=== PATIENT | male | born 1950 | race Caucasian/White ===

== ENCOUNTER 2023-05-04 10:18 | Outpatient (CLI) | payer MEDICARE, MEDICAID, SELFPAY ==
--- NOTE | 2023-05-04 10:30 | CT_ITS ---
WS: [id number] LDCT LUNG CANCER SCREENING TECHNIQUE: Noncontrast CT of the chest with coronal and sagittal reformatted images. CLINICAL INFORMATION: Lung CA screening COMPARISON: None. DLP: 72.02 mGy.cm DIvol: Mean CTDIvol: 1.70 (mGy) All CT scans at [facility] use at least one of these dose optimization techniques: automat ed exposure control; mA and/or kV adjustment per patient size (includes targeted exams where dose is matched to clinical indication); or iterative reconstruction. FINDINGS: Slight subsegmental atelectasis at the lung bases. Tiny left upper lobe nodule or partially calcified granuloma measuring 3.5 mm left upper lobe. Additional tiny noncalcified nodule left upper lobe. Aortic calcification. Normal caliber thoracic aorta. 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 This can be followed up with CTA. Coronary calcification. Normal caliber descending thoracic aorta. Partially visualized large lobulated left renal cysts the largest measuring 8.8 x 8.7 cm. Adrenal gla nds are normal. Small esophageal hernia. No mediastinal or hilar lymphadenopathy. No axillary lymphad enopathy. Hypertrophic changes thoracic spine with ankylosis. IMPRESSION: Large lobulated left renal cysts. This to be further evaluated with ultrasound or CT abdo men pelvis. 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 This can be further evalua sharla with CTA. CT/CT lung screening [id number] LUNG-RADS: 2S-Benign Appearance or Behavior with Significant Findings FOLLOW UP: 12 Month: Continue annual screening with LDCT
== END 2023-05-04 10:19 | disposition home or self-care (01) ==
PROVIDERS: PCP Family Medicine; Visit Provider Family Medicine
DX: F17.219 Nicotine dependence, cigarettes, with unspecified nicotine-induced disorders (principal); Z72.0 Tobacco use; Z12.2 Encounter for screening for malignant neoplasm of respiratory organs
CPT/HCPCS: 71271

== ENCOUNTER 2023-05-26 14:21 | Outpatient (CLI) | payer MEDICARE, MEDICAID, SELFPAY ==
--- NOTE | 2023-05-26 14:30 | CT_ITS ---
WS: [id number] CT ANGIOGRAPHY CHEST, ABDOMEN AND PELVIS HISTORY: AORTIC ANEURYSM, LOBULATED RENAL CYSTS TECHNIQUE: CT angiogram is performed during IV injection. Reformation images reviewed. All CT scans a [employer] use at least one of these dose optimization techniques: automated exposure contro l; mA and/or kV adjustment per patient size (includes targeted exams where dose is matched to clinica l indication); or iterative reconstruction. CONTRAST: Omnipaque 350; 100 mL IV. DLP: 1099.36 mGy.cm COMPARISON: 05/04/2023. Thoracic aorta: Very good opacification of the thoracic aorta. There is calcified plaque through the aortic arch. Ascending aorta is normal caliber. Focal plaque through the aortic arch. Bovine arch. Mo derate stenosis origin of the LEFT subclavian artery. Normal caliber of the descending aorta. No aneu rysm. Normal sized pulmonary artery. Significant motion artifact. Patient was unable to hold his garret th for this examination. No enlarged nodules or masses identified. No pneumonia. No mediastinal or hi lar adenopathy. Normal size heart. Small hiatal hernia. Abdominal aorta: Increasing calcified plaque through the abdominal aorta. No aneurysm or high-grade s tenosis. There is both a mixture of calcified plaque and intimal thickening. No significant stenosis involving the SMA or celiac axis. Both kidneys are enhancing normally. Bifurcation is intact. Slightl y greater plaque on the LEFT with a small diameter. 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 Normal appearance of the liver and spleen. Cholelithiasis without acute cholecystitis. Negative pancr eas. Bilateral renal cysts. Large LEFT renal cysts. There are 2 large renal cysts with the largest me asuring 11 x 9 cm. No adenopathy or ascites. No GI tract obstruction. Normal appendix. Mild sigmoid d iverticulosis. No acute diverticulitis. Urinary bladder is well distended. Prostate gland is mildly enlarged encroaching into the bladder. L4 anterolisthesis by 5 mm. IMPRESSION: 1. No thoracic aortic aneurysm. Moderate amount of plaque through the aortic arch. 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 2. Evaluation of the lungs is limited due to breathing motion artifact. 3. Moderate atherosclerotic plaque abdominal aorta with extension into the iliac arteries. Occluded L EFT internal iliac artery. 4. Bilateral renal cysts. Large LEFT renal cysts. There are 2 large LEFT renal cysts with the largest measuring 11 x 9 cm. 5. Prostate gland enlargement.
[2023-05-26 14:59] LABS: Blood Urea Nitrogen 12 mg/dL (8-23)
[2023-05-26] MEDS: iohexol 350 mg/mL 500 mL Btl (per mL) IV (15:21)
== END 2023-05-26 14:22 | disposition home or self-care (01) ==
LOC: RAD 14:25
PROVIDERS: Radiology Neuroradiology; PCP Family Medicine; Visit Provider Family Medicine
DX: I71.22 Aneurysm of the aortic arch, without rupture (principal); Q61.9 Cystic kidney disease, unspecified; R39.9 Unspecified symptoms and signs involving the genitourinary system; N40.0 Benign prostatic hyperplasia without lower urinary tract symptoms
CPT/HCPCS: 71275; 74174; 82565; 84520; Q9967

== ENCOUNTER 2023-07-05 08:54 | Outpatient (CLI) | payer MEDICARE, MEDICAID, SELFPAY ==
--- NOTE | 2023-07-05 09:00 | US_ITS ---
WS: [id number] RENAL ULTRASOUND HISTORY: Bilateral Renal Cysts COMPARISON: 05/26/2023 TECHNIQUE: 2-D and color Doppler imaging of the kidney submitted. Right kidney: 11.5 cm x 6.7 cm x 7.8 cm. Cortex: 1.6 cm Normal size kidney. There is a very tiny cortical cyst mid kidney with a maximum diameter of 1.1 cm. Left kidney: 11.8 cm x 3.8 cm x 6.3 cm. Cortex: 1.4 cm Normal size kidney. There are several cysts within the LEFT kidney. There are low-level echoes throug hout the cyst which is probably artifact. The largest cyst measures 11.0 x 8.1 x 8.5 cm. There are at least 3 cysts identified. The cysts are slightly displacing the renal pelvis. There is no hydronephr osis. Aorta: Normal. Urinary Bladder: Nondistended. IMPRESSION: 1. No hydronephrosis or solid mass. 2. Large LEFT renal cysts. 3 cysts are identified with the largest measuring 11.0 x 8.1 x 8.5 cm.
== END 2023-07-05 08:55 | disposition home or self-care (01) ==
PROVIDERS: PCP Family Medicine; Visit Provider Family Medicine
DX: N28.1 Cyst of kidney, acquired (principal)
CPT/HCPCS: 76770

== ENCOUNTER 2023-10-13 18:52 | Emergency (ER) | payer MEDICARE, MEDICAID, SELFPAY ==
[2023-10-13 19:06] VITALS: BP 142/80; PULSE 134; RESP 16; TEMP 36.7; O2SAT 95
--- NOTE | 2023-10-13 19:35 | W.ED.MALEGU ---
HPI - Male Genitourinary General: Chief complaint: Urogenital-Male Stated complaint: urgent care sent: purvi dinero Time Seen by Provider: 10/13/23 19:24 History of Present Illness: Patient presents to the ER from the urgent care with a caregiver at bedside. They are reporting foul-smelling urine and fever x 2 days as well along with urinary incontinence. Patient has a fever 101 this afternoon but was given 2 Tylenol and his temperature was 98.1 in the emergency room. Patient is complaining of mild suprapubic pain today per the caregiver and caregiver states that his mentation today is his baseline. Review of Systems General: Reports: 10 or more systems reviewed and unremarkable except in HPI and below Physical Exam HENMT: COMMON NORMALS: normocephalic, atraumatic, hearing grossly normal bilaterally, external ears normal, EAC's normal, Normal external nose present, moist oral mucous membranes and oropharynx normal HEAD & SCALP: normocephalic and atraumatic NOSE: Normal external nose present EXTERNAL EAR: Yes external ears normal EXTERNAL AUDITORY CANAL: EAC's normal Neck/C-Spine: COMMON NORMALS: no JVD Chest: COMMONS NORMALS: normal inspection of the chest and normal palpation of entire chest wall Resp: COMMON NORMALS: normal respiratory effort, No retractions, No use of accessory muscles and clear to auscultation bilaterally AUSCULTATION: clear to auscultation bilaterally Cardio: COMMON NORMALS: no JVD, regular rhythm, S1 normal heart sound present, S2 normal heart sound present, No gallops present (Cardio), No clicks present (Cardio) and No murmurs present (Cardio); negative for regular rate (Tachycardic) RATE: abnormal rate (Tachycardic) RHYTHM: regular rhythm HEART SOUNDS: S1 normal heart sound present and S2 normal heart sound present Course Vital Signs: Vital signs: Vital Signs Temperature 98.1 F 10/13/23 19:06 Pulse Rate 134 H 10/13/23 19:06 Respiratory Rate 16 10/13/23 19:06 Blood Pressure 142/80 10/13/23 19:06 Pulse Oximetry 95 10/13/23 19:06 MDM - Male Medical Decision Making Urinalysis was obtained which showed tyler hematuria and positive for nitrates leukocyte Estrace with too many to count red blood cells and white blood cells. Patient be given Cipro 500 mg here in ER and discharged home to continue on Cipro 500 mg twice daily for 7 days. Patient should follow-up with his PCP within the next 7 to 10 days for further evaluation and treatment. Differential Diagnosis Likely urinary tract infection; Unlikely priapism, urethritis, epididymitis, genital herpes simplex, prostatitis, acute retention of urine or inguinal hernia Medical Records I reviewed the patient's medical records. Lab Data I reviewed the patient's lab results. Laboratory Results Urine Color Red (Yellow) A 10/13/23 19:46 Urine Appearance Bloody (CLEAR) A 10/13/23 19:46 Urine pH 9 (5-7) H 10/13/23 19:46 Ur Specific [place] 1.010 (1.005-1.030) 10/13/23 19:46 Urine Protein 3+ (Negative) H 10/13/23 19:46 Urine Glucose (UA) Norm (Normal) 10/13/23 19:46 Urine Ketones 1+ (Negative) H 10/13/23 19:46 Urine Blood 3+ (Negative) H 10/13/23 19:46 Urine Nitrate Positive (Negative) H 10/13/23 19:46 Urine Bilirubin Neg (Negative) 10/13/23 19:46 Prot Sulfosalicylic Acd Positive (Negative) 10/13/23 19:46 Urine Urobilinogen 1 mg/dL (Negative) H 10/13/23 19:46 Ur Leukocyte Esterase 2+ (Negative) H 10/13/23 19:46 Urine RBC Too numerous to cnt /hpf (0-2) H 10/13/23 19:46 Urine WBC Too numerous to cnt /hpf (0-5) H 10/13/23 19:46 Ur Squamous Epith Cells 0-4 /hpf (0-5) H 10/13/23 19:46 Amorphous Sediment Not Reportable 10/13/23 19:46 Urine Bacteria 4+ /hpf (NONE) H 10/13/23 19:46 All radiology interpretation(s) finalized by discharge Discharge Plan Discharge Patient Disposition: Home Clinical Impression: Urinary tract infection Condition: Stable Prescriptions: No Action acetaminophen [Tylenol] 325 mg tablet 325 mg PO QID PRN Pepto-Bismol Max St 525 mg/15 mL suspension 1,050 mg PO Q4H PRN (Reason: Upset Stomach and Diarrhea) Rx Instructions: do not exceed 8 doses in a 24 hour period (DME) Assist for mobility See Rx Instructions .Route .MEDSUPPLY Qty: 1 0RF Rx Instructions: Needs extra assistance with [facility] due to blindness. simvastatin 20 mg tablet 20 mg PO DAILY Qty: 30 5RF neomycin-polymyxin B-dexameth [Maxitrol] 3.5mg/mL-10,000 unit/mL-0.1 % drops,suspension 2 drp ophthalmic (eye) Q2H Qty: 5 0RF polyethylene glycol 3350 [Miralax] 17 gram/dose powder 4 g PO DAILY PRN (Reason: constipation) Qty: 119 5RF trazodone 50 mg tablet See Rx Instructions .ROUTE .COMPLEX Qty: 30 5RF Dose Instruction: TAKE ONE TABLET BY MOUTH EVERY DAY FOR insomnia Rx Instructions: TAKE ONE TABLET BY MOUTH EVERY DAY FOR insomnia lisinopril 20 mg tablet See Rx Instructions .ROUTE .COMPLEX Qty: 30 5RF Dose Instruction: TAKE ONE TABLET BY MOUTH EVERY DAY *take bp prior TO giving if bp <100/70 AND pulse < 60 call nurse* Rx Instructions: TAKE ONE TABLET BY MOUTH EVERY DAY *take bp prior TO giving if bp <100/70 AND pulse < 60 call nurse* tamsulosin 0.4 mg capsule See Rx Instructions .ROUTE .COMPLEX Qty: 30 5RF Dose Instruction: TAKE ONE CAPSULE BY MOUTH DAILY At Bedtime FOR urinary retention AND urgency Rx Instructions: TAKE ONE CAPSULE BY MOUTH DAILY At Bedtime FOR urinary retention AND urgency diphenhydramine HCl [Benadryl Allergy] 25 mg tablet 25 mg PO TID PRN (Reason: allergy symptoms) Qty: 60 5RF Secura Protective (zinc oxide) 10 % cream 1 applic topical TID Qty: 78 5RF docusate sodium 100 mg capsule See Rx Instructions .ROUTE .COMPLEX Qty: 30 5RF Dose Instruction: Take 1 softgel capsule BY MOUTH DAILY FOR CONSTIPATION Rx Instructions: Take 1 softgel capsule BY MOUTH DAILY FOR CONSTIPATION Discharge Orders: Discharge ED (Routine); Ordered 10/13/23 Ordered By: Alvino Ghosh Referrals: Kaiden Dnog DO [Primary Care Provider] - 1 week Patient Instructions: Urinary Tract Infection in Men (ED) Activity Restrictions/Additional Instructions: Please take your antibiotics as directed. Please follow-up with your family practice physician in the next 7 to 10 days for further evaluation and treatment as needed. If your symptoms worsen please return to the ER. Coding Level of Care Code ED Manager Inpatient for Delma Ron
[2023-10-13 20:39] LABS: Urine Color Red (Yellow)
[2023-10-13 20:40] LABS: Bilirubin Urine Neg (Negative); Blood Urine 3+ (Negative); Glucose Urine UA Norm (Normal); Ketones Urine 1+ (Negative); Leukocyte Esterase Urine 2+ (Negative); Nitrate Urine Positive (Negative); Protein Urine 3+ (Negative); Sulfosalicylic Acid Urine Positive (Negative); Urine Appearance Bloody (CLEAR); Urobilinogen Urine 1 mg/dL (Negative); pH Urine 9 (5-7)
[2023-10-13 20:42] LABS: Add Urine Culture? Yes; Add Urine Microscopic? YES; Bacteria Urine 4+ /hpf; RBC Urine TOO NUMEROUS TO CNT /hpf (0-2); Squamous Epithelial Cell Urine 0-4 /hpf (0-5); WBC Urine TOO NUMEROUS TO CNT /hpf (0-5)
[2023-10-13] MEDS: ciprofloxacin 500 mg Tablet PO (21:03)
[2023-10-13 21:06] VITALS: PULSE 122; O2SAT 96
== END 2023-10-13 21:09 | disposition home or self-care (01) ==
PROVIDERS: Emergency Medicine; Emergency Provider Emergency Medicine; PCP Family Medicine
DX: N39.0 Urinary tract infection, site not specified (principal)
CPT/HCPCS: 81001; 87077; 87086; 87186; 99283

== ENCOUNTER 2023-11-17 13:34 | Emergency (ER) | payer MEDICARE, MEDICAID, SELFPAY ==
[2023-11-17 13:40] VITALS: BP 157/76; PULSE 114; TEMP 36.4; O2SAT 93; BMI 28.7
--- NOTE | 2023-11-17 13:46 | ECG_ITS ---
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 Measurements Intervals [place] Rate: 110 P: 58 WV: 197 QRS: 83 QRSD: 89 T: 63 QT: 354 QTc: 480 Interpretive Statements SINUS TACHYCARDIA ABNORMAL RHYTHM ECG No previous ECG available for comparison Electronically Signed On 11-18-2023 10:49:26 ORCHID HAND by Melina Calero M.D. [id number]
--- NOTE | 2023-11-17 13:47 | ED_ITS ---
HPI - Syncope 2 General: Chief Complaint: Syncope Stated Complaint: Syncope Time Seen by Provider: 11/17/23 13:35 Source: patient, family and EMS Mode of arrival: EMS History of Present Illness: 72-year-old male who [facility] after having had a syncopal episode. Patient reports he has been not smoking. He came back inside, started to feel lightheaded so he sat down in a chair. He subsequently had a brief episode of unresponsiveness without injury. He states he feels back to normal now. He denies recent illness. No vomiting or diarrhea. He denies a headache, chest pain or abdominal pain. Family reports that he has had syncopal episodes in the past. The patient did have eye surgery yesterday. MD complaint: loss of consciousness Review of Systems 2 General: Reports: Other (Negative except per HPI and as documented) Card: Reports: syncope Resp: Reports: other (Chronic cough) Physical Exam 2 Narrative: EXAM NARRATIVE: General: Cooperative patient in no apparent distress. Total loss of vision. HEENT: Normocephalic, Atraumatic. External ears normal. Nasal passages patent without drainage. MMM. Blind. Periorbital ecchymosis of left upper and lower eyelid Heart: RRR. Resp: Lungs clear to auscultation, reduced air movement throughout the lung jon. Abd: Soft, non-tender. Non-distended. Extremities: No edema. Skin: 8mm erythematous, papular lesion present over the right side of the face. Hairpin vessels are present under dermoscopy, with central area of necrosis. 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 Neuro: No focal motor or sensory loss. Course 2 Vital Signs: Vital signs: Vital Signs Temperature 97.5 F L 11/17/23 13:40 Pulse Rate 114 H 11/17/23 13:40 Blood Pressure 157/76 11/17/23 13:40 Pulse Oximetry 93 11/17/23 13:40 Oxygen Delivery Me thod Room Air 11/17/23 13:40 MDM - Syncope Medical Decision Making Patient had an IV placed and labs obtained. Has been given 1 L normal saline bolus. He send laboratory studies obtained. Evaluation shows a urinary tract infection. He has been covered with Rocephin urine cultures have been sent. Placed on Ceftin 250 twice daily x 10 days. IV fluid boluses by baseline per the family. For the syncope was probably related to the UTI in combination with postanesthesia. Do not feel further workup or admission is indicated feel he stable for discharge home Lab Data Patient's white blood cell count is normal. His hemoglobin stable at 14.8. Electrolytes are normal. Renal functions normal. His glucose is 129. He does have a urinary tract infection with 11-25 white blood cells, 2+ leukocyte esterase. Urine culture has been sent. The patient's been given an IV fluid bolus. He is been given Rocephin 2 g IV. Urine culture is pending. Will plan for discharge home on Ceftin 250 twice daily x 10 days. Patient is also had a negative D-dimer as well as negative troponins 11/17/23 13:15 11/17/23 13:15 Laboratory Results WBC 9.65 10^3/uL (3.29-11.43) 11/17/23 13:15 RBC 4.86 10^6/uL (3.85-5.65) 11/17/23 13:15 Hgb 14.80 g/dL (11.27-16.99) 11/17/23 13:15 Hct 46.7 % (37-53) 11/17/23 13:15 MCV 96.1 fl (82-101) 11/17/23 13:15 MCH 30.5 pg (27-33) 11/17/23 13:15 MCHC 31.7 g/dL (30-55) 11/17/23 13:15 RDW 13.9 % (12.1-15.1) 11/17/23 13:15 Plt Count 223 10^3/cmm (157-399) 11/17/23 13:15 MPV 9.0 fL (7.4-10.4) 11/17/23 13:15 Neut % (Auto) 63.2 % 11/17/23 13:15 Lymph % (Auto) 27.6 % 11/17/23 13:15 [place] % (Auto) 6.7 % 11/17/23 13:15 Eos % (Auto) 1.7 % 11/17/23 13:15 Baso % (Auto) 0.6 % 11/17/23 13:15 Neut # (Auto) 6.10 10^3/uL (1.8-7.7) 11/17/23 13:15 Lymph # (Auto) 2.7 10^3/uL (0.8-4.8) 11/17/23 13:15 [place] # (Auto) 0.7 10^3/uL (0.2-0.9) 11/17/23 13:15 Eos # (Auto) 0.2 10^3/uL (0.0-0.8) 11/17/23 13:15 Baso # (Auto) 0.1 10^3/uL (0.0-0.1) 11/17/23 13:15 Nucleated RBC % (auto) 0 % 11/17/23 13:15 Nucleated RBCs # 0.0 /100WBC 11/17/23 13:15 D-Dimer 0.43 ug/mLFEU (0-0.59) 11/17/23 13:15 Sodium 141 mmol/L (136-145) 11/17/23 13:15 Potassium 3.9 mmol/L (3.5-5.1) 11/17/23 13:15 Chloride 102 mmol/L (98-107) 11/17/23 13:15 Carbon Dioxide 29 mmol/L (22-29) 11/17/23 13:15 Anion Gap 13.9 (5-19) 11/17/23 13:15 BUN 12 mg/dL (8-23) 11/17/23 13:15 Creatinine 0.8 mg/dL (0.7-1.2) 11/17/23 13:15 GFR Calculation Not Reportable 11/17/23 13:15 Glucose 129 mg/dL (65-115) H 11/17/23 13:15 POC Glucose 155 mg/dL (70-110) H 11/17/23 13:57 Calculated Osmolality 293 mOsm/kg (285-295) 11/17/23 13:15 Calcium 9.0 mg/dL (8.5-10.5) 11/17/23 13:15 Total Bilirubin 0.4 mg/dL (0.15-1.2) 11/17/23 13:15 AST 16 U/L (0-40) 11/17/23 13:15 ALT 25 U/L (0-41) 11/17/23 13:15 Alkaline Phosphatase 83 U/L (40-130) 11/17/23 13:15 Troponin T Baseline 12 ng/L (0-15) 11/17/23 13:15 Total Protein 6.3 g/dL (6.6-8.7) L 11/17/23 13:15 Albumin 4.0 g/dL (3.5-5.2) 11/17/23 13:15 Globulin 2.3 g/dL (1.3-4.6) 11/17/23 13:15 Urine Color Yellow (Yellow) 11/17/23 14:25 Urine Appearance Sl hazy (CLEAR) A 11/17/23 14:25 Urine pH 7 (5-7) 11/17/23 14:25 Ur Specific [place] 1.010 (1.005-1.030) 11/17/23 14:25 Urine Protein Trace (Negative) 11/17/23 14:25 Urine Glucose (UA) Norm (Normal) 11/17/23 14:25 Urine Ketones 1+ (Negative) H 11/17/23 14:25 Urine Blood Neg (Negative) 11/17/23 14:25 Urine Nitrate Negative (Negative) 11/17/23 14:25 Urine Bilirubin Neg (Negative) 11/17/23 14:25 Urine Urobilinogen 1 mg/dL (Negative) H 11/17/23 14:25 Ur Leukocyte Esterase 2+ (Negative) H 11/17/23 14:25 Urine RBC 0-4 /hpf (0-2) H 11/17/23 14:25 Urine WBC 15-25 /hpf (0-5) H 11/17/23 14:25 Ur Squamous Epith Cells 0-4 /hpf (0-5) H 11/17/23 14:25 Amorphous Sediment Not Reportable 11/17/23 14:25 Urine Bacteria Trace /hpf (NONE) 11/17/23 14:25 No radiology studies performed this visit EKG Data EKG 1: I personally reviewed and interpreted this EKG as follows: EKG interpretation date: 11/17/23 EKG interpretation time: 14:00 Interpretation: Sinus tachycardia, no acute ischemic ST segment elevation or depression Discharge Plan Discharge Patient Disposition: Home Clinical Impression: Syncope, Urinary tract infection Condition: Stable Prescriptions: New cefuroxime axetil 250 mg tablet 250 mg PO BID 10 Days Qty: 20 0RF No Action acetaminophen [Tylenol] 325 mg tablet 325 mg PO QID PRN Pepto-Bismol Max St 525 mg/15 mL suspension 1,050 mg PO Q4H PRN (Reason: Upset Stomach and Diarrhea) Rx Instructions: do not exceed 8 doses in a 24 hour period (DME) Assist for mobility See Rx Instructions .Route .MEDSUPPLY Qty: 1 0RF Rx Instructions: Needs extra assistance with mobility at [facility] due to blindness. neomycin-polymyxin B-dexameth [Maxitrol] 3.5mg/mL-10,000 unit/mL-0.1 % drops,suspension 2 drp ophthalmic (eye) Q2H Qty: 5 0RF tamsulosin 0.4 mg capsule 0.4 mg PO BID 30 Days Qty: 60 5RF polyethylene glycol 3350 [Miralax] 17 gram/dose powder 4 g PO DAILY PRN (Reason: constipation) Qty: 119 5RF trazodone 50 mg tablet See Rx Instructions .ROUTE .COMPLEX Qty: 30 5RF Dose Instruction: TAKE ONE TABLET BY MOUTH EVERY DAY FOR insomnia Rx Instructions: TAKE ONE TABLET BY MOUTH EVERY DAY FOR insomnia lisinopril 20 mg tablet See Rx Instructions .ROUTE .COMPLEX Qty: 30 5RF Dose Instruction: TAKE ONE TABLET BY MOUTH EVERY DAY *take bp prior TO giving if bp <100/70 AND pulse < 60 call nurse* Rx Instructions: TAKE ONE TABLET BY MOUTH EVERY DAY *take bp prior TO giving if bp <100/70 AND pulse < 60 call nurse* diphenhydramine HCl [Benadryl Allergy] 25 mg tablet 25 mg PO TID PRN (Reason: allergy symptoms) Qty: 60 5RF Secura Protective (zinc oxide) 10 % cream 1 applic topical TID Qty: 78 5RF docusate sodium 100 mg capsule See Rx Instructions .ROUTE .COMPLEX Qty: 30 5RF Dose Instruction: Take 1 softgel capsule BY MOUTH DAILY FOR CONSTIPATION Rx Instructions: Take 1 softgel capsule BY MOUTH DAILY FOR CONSTIPATION simvastatin 20 mg tablet See Rx Instructions .ROUTE .COMPLEX Qty: 30 5RF Dose Instruction: TAKE ONE TABLET BY MOUTH EVERY NIGHT AT BEDTIME Rx Instructions: TAKE ONE TABLET BY MOUTH EVERY NIGHT AT BEDTIME ciprofloxacin HCl 500 mg tablet 500 mg PO BID Qty: 14 0RF Discharge Orders: Discharge ED (Routine); Ordered 11/17/23 Ordered By: Haily Patel Referrals: Iker,Kaiden W, DO [Primary Care Provider] - Patient Instructions: Opioid Safety, Pain Management Activity Restrictions/Additional Instructions: make sure he is drinking plenty of fluids. Start his antibiotics tomorrow, twice daily until gone. Return if he has any recurrent symptoms. Coding Level of Care Code ED Poiser for Delma Ron
[2023-11-17 13:54] LABS: Basophils # 0.1 10^3/uL (0.0-0.1); Basophils % 0.6 %; Eosinophils # 0.2 10^3/uL (0.0-0.8); Eosinophils % 1.7 %; Hematocrit 46.7 % (37-53); Lymphocytes # 2.7 10^3/uL (0.8-4.8); Lymphocytes % 27.6 %; Mean Corpuscular HGB Conc 31.7 g/dL (30-55); Mean Corpuscular Hemoglobin 30.5 pg (27-33); Mean Corpuscular Volume 96.1 fl (82-101); Monocytes # 0.7 10^3/uL (0.2-0.9); Monocytes % 6.7 %; Neutrophils % 63.2 %; Nucleated Red Blood Cells % 0 %; Platelet Count 223 10^3/cmm (157-399); Red Blood Count 4.86 10^6/uL (3.85-5.65); Red Cell Distribution Width 13.9 % (12.1-15.1); White Blood Count 9.65 10^3/uL (3.29-11.43)
[2023-11-17 14:00] LABS: Glucose Point of Care 155 mg/dL (70-110)
[2023-11-17 14:13] LABS: D Dimer 0.43 ug/mLFEU (0-0.59)
[2023-11-17 14:15] LABS: Troponin(5th) Baseline 12 ng/L (0-15)
[2023-11-17] MEDS: sodium chloride 0.9% 1,000 ML 999 ML IV ×2 (14:15→15:35)
[2023-11-17 14:17] LABS: Alanine Aminotransferase 25 U/L (0-41); Alkaline Phosphatase 83 U/L (40-130); Anion Gap 13.9 (5-19); Aspartate Amino Transferase 16 U/L (0-40); Blood Urea Nitrogen 12 mg/dL (8-23); Carbon Dioxide 29 mmol/L (22-29); Chloride 102 mmol/L (98-107); Creatinine Clr Calc Pharmacy 95.9378; Globulin 2.3 g/dL (1.3-4.6); Glucose 129 mg/dL (65-115); Osmolality Calculated 293 mOsm/kg (285-295); Potassium 3.9 mmol/L (3.5-5.1); Sodium 141 mmol/L (136-145); Total Bilirubin 0.4 mg/dL (0.15-1.2); Total Protein 6.3 g/dL (6.6-8.7)
[2023-11-17 14:46] LABS: Glucose Urine UA Norm (Normal); Ketones Urine 1+ (Negative); Protein Urine Trace (Negative); Urine Appearance SL Hazy (CLEAR); Urine Color Yellow (Yellow); pH Urine 7 (5-7)
[2023-11-17 14:47] LABS: Add Urine Microscopic? YES; Bilirubin Urine Neg (Negative); Blood Urine Neg (Negative); Leukocyte Esterase Urine 2+ (Negative); Nitrate Urine Negative (Negative); Urobilinogen Urine 1 mg/dL (Negative)
[2023-11-17 14:48] LABS: Bacteria Urine TRACE /hpf; RBC Urine 0-4 /hpf (0-2); Squamous Epithelial Cell Urine 0-4 /hpf (0-5); WBC Urine 15-25 /hpf (0-5)
[2023-11-17 14:50] LABS: Add Urine Culture? Yes
[2023-11-17] MEDS: cefTRIAXone 2,000 MG in sodium chloride 0.9% (plus) 50 ML 100 MG IV (15:35)
[2023-11-17 15:39] LABS: Troponin 5 2HR 12.39 ng/L (0-15); Troponin 5 2HR Delta 0.39 ABS# (0-10)
--- NOTE | 2023-11-17 15:46 | ECG_ITS ---
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 Measurements Intervals [place] Rate: 104 P: 60 DE: 199 QRS: 66 QRSD: 96 T: 52 QT: 342 QTc: 451 Interpretive Statements SINUS TACHYCARDIA ABNORMAL RHYTHM ECG Compared to ECG 11/17/2023 13:56:23 No significant changes Electronically Signed On 11-18-2023 20:11:32 STRIPER by Melina Calero M.D. [id number]
== END 2023-11-17 17:05 | disposition home or self-care (01) ==
PROVIDERS: Emergency Provider Emergency Medicine; PCP Family Medicine
DX: R55 Syncope and collapse (principal); N39.0 Urinary tract infection, site not specified
CPT/HCPCS: 36415; 36416; 80053; 81001; 82962; 84484; 85025; 85378; 87086; 93005; 96361; 96365; 99285; J0696; J7030

== ENCOUNTER → 2023-11-26 08:00 | Outpatient (BNVA) | payer MEDICARE, MEDICAID, SELFPAY | PROVIDERS: PCP Family Medicine; Referring Provider Family Medicine; Visit Provider Nurse Practitioner Family | DX: L21.8 Other seborrheic dermatitis (principal); D22.5 Melanocytic nevi of trunk; L85.3 Xerosis cutis; B35.8 Other dermatophytoses; L57.0 Actinic keratosis | CPT/HCPCS: 99204 ==

== ENCOUNTER 2023-12-01 07:45 | Outpatient (CLI) | payer MEDICARE, MEDICAID, SELFPAY ==
--- NOTE | 2023-12-01 08:00 | USCV_ITS ---
Jermaine Seng Age: 72 Gender: M : 1950 Exam Date: 12/01/2023 07:53 Ordering Phys: Kaiden Dong DO Technologist: JOBY [place] [facility] [place]: S[place] Risk Factors: Previous Vascular Surgery: Right Brachial BP: / Left Brachial BP: / Right Left Velocity (cm/s) Spectral Plaque Velocity (cm/s) Spectral Plaque Syst/Diast Broadening Syst/Diast Broadening 102.20/19.30 Prox CCA 102.20/ 21.40 95.70/ 25.80 Mid CCA 118.70/ 28.80 124.70/28.80 Distal CCA 82.40 / 23.60 62.90/ 17.90 Prox ICA 113.20/ 26.10 78.10/ 24.40 Mid ICA 107.90/ 27.30 64.30/ 25.90 Distal ICA 44.30 / 15.20 93.60 ECA 126.00 0.60 ICA/CCA 1.40 Antegrade Vertebral Antegrade 55.80/ 16.80 cm/s 53.70/ 15.30 cm/s Tri Subclavian Bi 79.50 91.40 CONCLUSIONS Right ICA stenosis <50%. Moderate calcified atheromatous plaque right carotid bulb/ICA. Left ICA stenosis <50%. Moderate calcified atheromatous plaque left carotid bulb/ICA. Normal antegrade Doppler flow noted in the right vertebral artery. Normal antegrade Doppler flow noted in the left vertebral artery. Koko Rubalcava MD (Electronically Signed) Final Date: 01 December 2023 09:09 S
== END 2023-12-01 07:46 | disposition home or self-care (01) ==
LOC: RAD 07:45
PROVIDERS: PCP Family Medicine; Visit Provider Family Medicine
DX: R55 Syncope and collapse (principal); R56.9 Unspecified convulsions; R29.90 Unspecified symptoms and signs involving the nervous system; I65.23 Occlusion and stenosis of bilateral carotid arteries
CPT/HCPCS: 93880

== ENCOUNTER 2023-12-13 09:22 | Outpatient (CLI) | payer MEDICARE, MEDICAID, SELFPAY ==
--- NOTE | 2023-12-13 09:30 | CT_ITS ---
WS: [id number] CT HEAD TECHNIQUE: Noncontrast CT of the head obtained from the skullbase to the vertex. CLINICAL INFORMATION: Syncope, new onset seizures COMPARISON: None. DLP: 1081.[address] scans at [facility] use at least one of these dose optimization techniques: automated e xposure control; mA and/or kV adjustment per patient size (includes targeted exams where dose is matc hed to clinical indication); or iterative reconstruction. FINDINGS: No evidence of intracranial hemorrhage or mass effect. Ventricular system and basal cisterns are hwang nt. Moderate small vessel changes with moderate parenchymal volume loss. No extra-axial fluid collect ions. No evidence of mass or mass effect. Intracranial vascular calcification. Incidental holger cister na magna. 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 LEFT frontal sinusitis with opacification of the frontoethm oidal recess with sinusitis. IMPRESSION: 1. No evidence of intracranial hemorrhage or mass effect. 2. Moderate small vessel changes. Moderate parenchymal volume loss. 3. Sinusitis LEFT frontal sinus and frontoethmoidal recess. 4. 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 No acute intracranial findings.
== END 2023-12-13 09:23 | disposition home or self-care (01) ==
LOC: RAD 09:23
PROVIDERS: PCP Family Medicine; Visit Provider Family Medicine
DX: R55 Syncope and collapse (principal); R56.9 Unspecified convulsions; R29.90 Unspecified symptoms and signs involving the nervous system; J32.1 Chronic frontal sinusitis
CPT/HCPCS: 70450

== ENCOUNTER → 2024-01-05 11:13 | Outpatient (BNVA) | payer MEDICARE, MEDICAID, SELFPAY | PROVIDERS: PCP Family Medicine; Visit Provider Nurse Practitioner Family | DX: L85.3 Xerosis cutis (principal); B35.8 Other dermatophytoses; L57.8 Other skin changes due to chronic exposure to nonionizing radiation; L81.4 Other melanin hyperpigmentation; D22.39 Melanocytic nevi of other parts of face | CPT/HCPCS: 99214 ==

== ENCOUNTER → 2024-01-24 08:03 | Outpatient (BNVA) | payer MEDICARE, MEDICAID, SELFPAY | PROVIDERS: PCP Family Medicine; Visit Provider Podiatrist Foot & Ankle Surgery | DX: L97.522 Non-pressure chronic ulcer of other part of left foot with fat layer exposed (principal); M76.822 Posterior tibial tendinitis, left leg | CPT/HCPCS: 73630; 99203 ==

== ENCOUNTER → 2024-02-07 13:49 | Outpatient (BNVA) | payer MEDICARE, MEDICAID, SELFPAY | PROVIDERS: PCP Family Medicine; Visit Provider Podiatrist Foot & Ankle Surgery | DX: M76.822 Posterior tibial tendinitis, left leg (principal); L97.522 Non-pressure chronic ulcer of other part of left foot with fat layer exposed | CPT/HCPCS: 99213 ==

== ENCOUNTER → 2024-02-15 15:12 | Outpatient (BNVA) | payer MEDICARE, MEDICAID, SELFPAY | PROVIDERS: PCP Family Medicine; Visit Provider Dermatology | DX: L21.8 Other seborrheic dermatitis (principal); T23.121A Burn of first degree of single right finger (nail) except thumb, initial encounter; X58.XXXA Exposure to other specified factors, initial encounter | CPT/HCPCS: 99214 ==

== ENCOUNTER 2024-06-29 08:46 | Outpatient (CLI) | payer MEDICARE, MEDICAID, SELFPAY ==
--- NOTE | 2024-06-29 09:00 | CT_ITS ---
WS: [id number] LDCT LUNG CANCER SCREENING HISTORY: Screening for lung cancer TECHNIQUE: Axial imaging performed from the apices to 1 cm below the costophrenic angles. Coronal and sagittal reformats are submitted with axial MIP series. All CT scans at [facility] use at least one of these dose optimization techniques: automated exposure control; mA and/or kV adjustment per patient size (includes targeted exams where dose is matched to clinical indication); or iterativ e reconstruction. DLP: 108.90 mGy.cm DIvol: Mean CTDIvol: 2.90 (mGy) COMPARISON: None available. Diagnostic quality: Limited by breathing motion artifact. Lungs: Significant motion artifact obscure small nodules. Patient was unable to remain still to coope rate for this examination. No pulmonary nodules or masses identified. No large pneumonia. Heart: Normal size heart with no pericardial effusion.. Other findings: Atherosclerosis aorta. No aneurysm. No adenopathy. Small hiatal hernia. Large well-ci rcumscribed cystic mass in the LEFT upper abdomen has been described associated with the LEFT kidney on prior exams. Cyst is incompletely visualized but the portion present measures 8.9 x 9.3 cm. No adr enal abnormality. Thoracic spondylitic disease. CT/CT lung screening [id number] IMPRESSION: LUNG-RADS: 2-Benign Appearance or Behavior FOLLOW UP: 12 Month: Continue annual screening with LDCT OTHER FINDINGS (S MODIFIER): None.
== END 2024-06-29 08:47 | disposition home or self-care (01) ==
LOC: RAD 08:47
PROVIDERS: PCP Family Medicine; Visit Provider Family Medicine
DX: Z12.2 Encounter for screening for malignant neoplasm of respiratory organs (principal); F17.219 Nicotine dependence, cigarettes, with unspecified nicotine-induced disorders; R19.00 Intra-abdominal and pelvic swelling, mass and lump, unspecified site; K44.9 Diaphragmatic hernia without obstruction or gangrene
CPT/HCPCS: 71271

== ENCOUNTER → 2025-01-08 13:29 | Outpatient (BNVA) | payer MEDICARE, MEDICAID, SELFPAY | PROVIDERS: PCP Family Medicine; Referring Provider Dermatology; Visit Provider Nurse Practitioner Family | DX: L21.8 Other seborrheic dermatitis (principal); L57.8 Other skin changes due to chronic exposure to nonionizing radiation | CPT/HCPCS: 99214 ==

== ENCOUNTER 2025-03-20 16:31 | Emergency (ER) | payer MEDICARE, MEDICAID, SELFPAY ==
--- OUTSIDE RECORDS SUMMARY | 2025-03-13 11:05 | XMS_ITS ---
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 Name Role Phone Kaiden Dong DO Primary Care Provider Unavail able JESSICA CHAVARRIA Unavailable [phone] TOMMY العلي Unavailable [phone] Allergies No Known Allergies REASON FOR VISIT TAMSULOSIN BID Medications Medication SIG (Take, Route, Fr equency, Duration) Notes Start Date End Date Status Tamsulosin HCl 0.4 MG 1 capsule Orally t wice a day for 90 days 03/13/2025 03/08/2026 Active Encounters Encounter Location Date Provider Diagnosis [facility] [address] [place] [address] 03/13/2025 TOMMY العلي Plan Of Treatment Medication Medication Name Sig Start Date Stop Date Notes Tamsulosin HCl 0.4 MG 1 capsule Orally t wice a day for 90 days 03/13/2025 03/08/2026 Next Appt Details Provider Name:TOMMY العلي, 0 03/18/2026 10:40:00 AM, [address] [place], [address], Progress Notes * Seng DEAN ADOB:[birth year] (74 yo M)Acc No.[id number]:03/13/2025 Patient: Enrrique DIANAChepeSeng A :1950 A ge:74 Y S ex:Male Address:[address], [place], [address] * Refills Start Tamsulosin HCl Capsule, 0.4 MG, Orally, 180 Capsule, 1 capsule, twice a day, 90 days, Refills=3 Subjective: * Chief Complaints: * T AMSULOSIN BID * Medical History: * Surgical History: * Hospitalization/Major Diagno stic Procedure: * Medications: * Allergies: N .K.D.A.no[Allergies Verified] Objective: * Vitals: * Physical Examination: Assessment: Plan: * Treatment: * Procedure Codes: * true * Date: Generated for Sera kilgore/Stan/Kindrasmitting on: 0 03/20/2025 05:56 PM CDT
[2025-03-20 16:38] VITALS: BP 165/90; PULSE 110; RESP 20; TEMP 36.8; O2SAT 92
--- NOTE | 2025-03-20 16:42 | CTR_ITS ---
PROCEDURE INFORMATION: Exam: CT Lumbar Spine Without Contrast Exam date and time: 03/20/2025 5:12 PM Age: 74 years old Clinical indication: Injury or trauma; Fall; Blunt trauma (contusions or hematomas); Additional info: Low back pain TECHNIQUE: Imaging protocol: Computed tomography of the lumbar spine without contrast. Radiation optimization: All CT scans at this facility use at least one of these dose optimization techniques: automated exposure control; mA and/or kV adjustment per patient size (includes targeted exams where dose is matched to clinical indication); or iterative reconstruction. COMPARISON: CT ang ches abdpel [id number] 05/26/2023 3:03 PM RADIATION DOSE METRICS: Total DLP (mGy-cm): 843.43 FINDINGS: Bones/joints: There are chronic bilateral L5 pars defects without spondylolisthesis. There are chronic bilateral L4 pars defects with grade 1 anterolisthesis of L4 on L5. Spinal alignment is otherwise normal. Vertebral body height is maintained. Mild generalized disc bulges at L4-L5 and L5-S1. No large disc herniation is visible. Moderate to severe bilateral neural foraminal stenosis at L4-L5. Severe left neural foraminal stenosis at L5-S1. Multilevel mild spinal stenosis. There is an acute nondisplaced fracture of the right L3 transverse process. The visible portion of the pelvis and sacrum is intact. Visible portions of the ribs are intact. Kidneys and ureters: There are nonobstructive stones in the right kidney. There are large simple left renal cysts measuring up to 10 cm. Vasculature: There is moderate aortic atherosclerotic disease. Soft tissues: Paraspinal soft tissues are unremarkable. CT/CT lumbar spine wo con* [id number] IMPRESSION: 1. Acute nondisplaced right L3 transverse process fracture. 2. Chronic bilateral L4 and L5 pars defects. Grade 1 anterolisthesis of L4 on L5. No spondylolisthesis at L5-S1. 3. Lumbar degenerative disease as above. 4. Incidental findings above. COMMENTS: Consistent with the [place] [employer]'s Incidental Findings Committee white paper (J Am Silvia Radiol 2018): Any incidental renal lesion less than 1 cm or classified as too small to characterize, or any incidental cystic renal lesion characterized as simple-appearing, is likely benign. No follow-up imaging is recommended for these lesions per consensus recommendations based on imaging criteria.
--- NOTE | 2025-03-20 16:43 | CTR_ITS ---
PROCEDURE INFORMATION: Exam: CT Thoracic Spine Without Contrast Exam date and time: 03/20/2025 5:12 PM Age: 74 years old Clinical indication: Injury or trauma; Fall; Blunt trauma (contusions or hematomas) TECHNIQUE: Imaging protocol: Computed tomography of the thoracic spine without contrast. Total images: 730 Radiation optimization: All CT scans at this facility use at least one of these dose optimization techniques: automated exposure control; mA and/or kV adjustment per patient size (includes targeted exams where dose is matched to clinical indication); or iterative reconstruction. COMPARISON: CT lung screening [id number] 06/29/2024 9:02 AM RADIATION DOSE METRICS: Total DLP (mGy-cm): 843.43 FINDINGS: Bones/joints: No acute thoracic spine fracture or subluxation is evident. Moderate multilevel degenerative changes. Findings of DISH are noted within the mid and lower thoracic spine. Soft tissues: Incompletely imaged, large cystic structures thought to arise from the left kidney one of 10 cm and water attenuation similar to 05/26/2023. Other findings: Small hiatal hernia CT/CT thoracic spin wo con* [id number] IMPRESSION: No acute thoracic spine fracture or subluxation identified.
--- NOTE | 2025-03-20 16:44 | ED_ITS ---
HPI - Back Pain/Injury General: Chief Complaint: Back Pain/Injury Stated Complaint: upper back pain from fall Time Seen by Provider: 03/20/25 16:36 Source: patient Mode of arrival: ambulatory Limitations: no limitations History of Present Illness: 74-year-old male who is here after a fal l he had a fall yesterday initially did not complain of any pain denies complaining of some low back and thoracic pain. He has been able to ambulate denies hitting his head denies neck pain. Associated symptoms: Deny abdominal pain, chills, fever(s), nausea or vomiting Related Data Home Medications ?Medication ?Instructions ?Recorded ?Confirmed ketoconazole 2 % topical cream 1 applic topical BID 03/13/25 Previous Rx's ?Medication ?Instructions ?Recorded diphenhydramine HCl 25 mg tablet 25 mg PO TID PRN larry rgy symptoms 08/23/23 (Benadryl Allergy) #60 tabs vitamin A and D 1 applic topical 6XD PRN ski n 01/25/24 irritation #113 grams food supplemt, lactose-reduced 1 ea PO BID #5,688 mL 0 02/02/24 0.04 gram-1 kcal/mL oral liquid (Boost) BEDSIDE COMMODE #1 ea 04/25/24 WHEELCHAIR #1 ea 04/25/24 neomycin-bacitracn Zn-polymyx 3.5 See Rx Instructions .Route 05/22/24 mg-400 unit-5,000 unit/gram top .COMPLEX #28.4 grams oint (Triple Antibiotic) benzonatate 100 mg capsule 100 mg PO QID PRN cough #30 caps 07/04/24 guaifenesin 600 mg tablet, 600 mg PO BID #60 tabs 1005/20 extended release 12 hr ibuprofen 600 mg tablet (IBU) 600 mg PO Q6H PRN pain # 60 tabs 07/04/24 trazodone 50 mg tablet See Rx Instructions .Route 1 .COMPLEX #30 tabs finasteride 5 mg tablet 5 mg PO DAILY #30 tabs 08/11 triamcinolone acetonide 0.025 % 1 applic topical TID # 80 grams 09/29/24 topical cream nitrofurantoin See Rx Instructions .Route 0 10/16/24 monohydrate/macrocrystals 100 mg .COMPLEX #30 caps capsule tamsulosin 0.4 mg capsule 0.4 mg PO BID 30 days #60 ca ps 10/31/24 simvastatin 20 mg tablet See Rx Instructions .Route 0 11/01/24 .COMPLEX #30 tabs docusate sodium 100 mg capsule See Rx Instructions .Ro chipewwa 12/12/24 .COMPLEX #30 caps acetaminophen 325 mg tablet See Rx Instructions .Route 12/19/24 .COMPLEX #60 tabs polyethylene glycol 3350 17 See Rx Instructions .Route 12/27/24 gram/dose oral powder .COMPLEX #510 grams primidone 125 mg tablet See Rx Instructions .Route 0 01/16/25 .COMPLEX #90 tabs bismuth subsalicylate 262 mg/15 mL See Rx Instructions .Route 01/23/25 oral suspension (Pepto-Bismol) .COMPLEX #354 mL polymyxin B sulfate 10,000 1 drp ophthalmic (eye) QID 7 days 03/13/25 unit-trimethoprim 1 mg/mL eye drops #10 mL hydrocodone 5 mg-acetaminophen 325 1 tab PO Q6H PRN pa in #14 tabs 03/20/25 mg tablet Allergies Allergy/AdvReac Type Severity Reaction Status Date / Time No Known Allergies Allergy Verified 03/13/25 09:37 Review of Systems Const: Denies: fever(s), chills, body aches or change in appetite ENMT: Denies: throat pain or dental pain Card: Denies: chest pain Resp: Denies: dyspnea GI: Denies: abdominal pain, nausea, vomiting or diarrhea Musc: Reports: back pain; Denies: neck pain Skin/Breast: Denies: rash Neuro: Denies: headache(s) PFSH ED PFSH: Social History Smoking and tobacco/nicotine status: current every day tobacco/nicotine user Physical Exam Const: COMMON NORMALS: no acute distress, patient oriented x3 and healthy appearing HENMT: COMMON NORMALS: normocephalic and atraumatic HEAD & SCALP: normocephalic and atraumatic Neck/C-Spine: COMMON NORMALS: full ROM and supple Chest: COMMONS NORMALS: normal inspection of the chest Resp: COMMON NORMALS: normal respiratory effort Cardio: COMMON NORMALS: regular rate, regular rhythm and No murmurs present (Cardio) RATE: regular rate RHYTHM: regular rhythm GI: COMMON NORMALS: Normal to inspection, nondistended, normoactive bowel sounds present, Soft to palpation, non-tender and no masses PALPATION: Yes Soft to palpation Back/Pelvis: OTHER: tenderness along thoracic and lumbar spine Extremity: COMMON NORMALS: normal to inspection and full ROM Neuro: COMMON NORMALS: patient oriented x3, moves all extremities and no focal motor deficits Psych: COMMON NORMALS: mental status grossly normal, Normal thought process present and cooperative THOUGHT PROCESS: Normal thought process present Skin: COMMON NORMALS: no rashes or lesions noted and no wounds GENERAL SKIN EXAM: no rashes or lesions noted Course Vital Signs: Vital signs: Vital Signs Temperature 98.2 F 03/20/25 16:38 Pulse Rate 113 H 03/20/25 17:01 Respiratory Rate 22 H 03/20/25 16:54 Blood Pressure 165/90 03/20/25 16:55 Pulse Oximetry 93 03/20/25 16:55 Oxygen Delivery Me thod Room Air 03/20/25 16:55 MDM - Back Pain/Injury Medical Decision Making Patient presents here with back pain after fall yesterday does have a transverse process fracture no other fractures noted he stable for discharge follow-up PCP return if worsening. Medical Records I reviewed the patient's medical records. Labs Radiology Impressions Lumbar Spine CT 03/20/25 16:42 IMPRESSION: 1. Acute nondisplaced right L3 transverse process fracture. 2. Chronic bilateral L4 and L5 pars defects. Grade 1 anterolisthesis of L4 on L5. No spondylolisthesis at L5-S1. 3. Lumbar degenerative disease as above. 4. Incidental findings above. COMMENTS: Consistent with the [place] [employer]'s Incidental Findings Committee white paper (J Am Silvia Radiol 2018): Any incidental renal lesion less than 1 cm or classified as too small to characterize, or any incidental cystic renal lesion characterized as simple-appearing, is likely benign. No follow-up imaging is recommended for these lesions per consensus recommendations based on imaging criteria. Thoracic Spine CT 03/20/25 16:43 IMPRESSION: No acute thoracic spine fracture or subluxation identified. All radiology interpretation(s) finalized by discharge Discharge Plan Discharge Patient Disposition: Home Clinical Impression: Fracture of transverse process of vertebra Condition: Stable Prescriptions: New hydrocodone-acetaminophen 5-325 mg tablet 1 tab PO Q6H PRN (Reason: pain) Qty: 14 0RF No Action vitamin A and D Ointment 1 applic topical 6XD PRN (Reason: skin irritation) Qty: 113 5RF triamcinolone acetonide 0.025 % cream 1 applic topical TID Qty: 80 0RF ketoconazole 2 % cream 1 applic topical BID (DME) BEDSIDE COMMODE See Rx Instructions .Route .MEDSUPPLY Qty: 1 0RF Rx Instructions: As directed (DME) WHEELCHAIR See Rx Instructions .Route .MEDSUPPLY Qty: 1 0RF Rx Instructions: PLEASE ISSUE MANUAL FOLDING WHEELCHAIR ibuprofen [IBU] 600 mg tablet 600 mg PO Q6H PRN (Reason: pain) Qty: 60 2RF guaifenesin 600 mg tablet extended release 12hr 600 mg PO BID Qty: 60 1RF benzonatate 100 mg capsule 100 mg PO QID PRN (Reason: cough) Qty: 30 1RF polymyxin B sulf-trimethoprim 10,000 unit- 1 mg/mL drops 1 drp ophthalmic (eye) QID 7 Days Qty: 10 0RF diphenhydramine HCl [Benadryl Allergy] 25 mg tablet 25 mg PO TID PRN (Reason: allergy symptoms) Qty: 60 5RF Boost 0.04 gram- 1 kcal/mL liquid 1 ea PO BID Qty: 5688 11RF Rx Instructions: Please issue for BID consumption. Triple Antibiotic 3.5mg-400 unit- 5,000 unit/gram ointment See Rx Instructions .ROUTE .COMPLEX Qty: 28.4 0RF Dose Instruction: APPLY TO cuts AND abrasions NEEDED Rx Instructions: APPLY TO cuts AND abrasions NEEDED trazodone 50 mg tablet See Rx Instructions .ROUTE .COMPLEX Qty: 30 5RF Dose Instruction: TAKE ONE TABLET BY MOUTH EVERY NIGHT AT BEDTIME FOR insomnia Rx Instructions: TAKE ONE TABLET BY MOUTH EVERY NIGHT AT BEDTIME FOR insomnia finasteride 5 mg tablet 5 mg PO DAILY Qty: 30 5RF nitrofurantoin monohyd/m-cryst 100 mg capsule See Rx Instructions .ROUTE .COMPLEX Qty: 30 5RF Dose Instruction: TAKE ONE CAPSULE BY MOUTH EVERY DAY FOR UTI prophylaxis Rx Instructions: TAKE ONE CAPSULE BY MOUTH EVERY DAY FOR UTI prophylaxis tamsulosin 0.4 mg capsule 0.4 mg PO BID 30 Days Qty: 60 5RF simvastatin 20 mg tablet See Rx Instructions .ROUTE .COMPLEX Qty: 30 5RF Dose Instruction: TAKE ONE TABLET BY MOUTH EVERY NIGHT AT BEDTIME FOR CHOLESTEROL Rx Instructions: TAKE ONE TABLET BY MOUTH EVERY NIGHT AT BEDTIME FOR CHOLESTEROL docusate sodium 100 mg capsule See Rx Instructions .ROUTE .COMPLEX Qty: 30 5RF Dose Instruction: TAKE ONE CAPSULE BY MOUTH EVERY DAY FOR CONSTIPATION Rx Instructions: TAKE ONE CAPSULE BY MOUTH EVERY DAY FOR CONSTIPATION acetaminophen 325 mg tablet See Rx Instructions .ROUTE .COMPLEX Qty: 60 0RF Dose Instruction: TAKE TWO TABLETS BY MOUTH EVERY 4 HOURS NEEDED FOR PAIN/ELEVATED TEMPERATURE >100 Rx Instructions: TAKE TWO TABLETS BY MOUTH EVERY 4 HOURS NEEDED FOR PAIN/ELEVATED TEMPERATURE >100 polyethylene glycol 3350 17 gram/dose powder See Rx Instructions .ROUTE .COMPLEX Qty: 510 0RF Dose Instruction: dissolve 17gm in liquid and drink daily NEEDED FOR CONSTIPATION, GIVE ON FOURTH DAY if no BOWEL MOVEMENT in 3 days Rx Instructions: dissolve 17gm in liquid and drink daily NEEDED FOR CONSTIPATION, GIVE ON FOURTH DAY if no BOWEL MOVEMENT in 3 days primidone 125 mg tablet See Rx Instructions .ROUTE .COMPLEX Qty: 90 3RF Dose Instruction: TAKE ONE TABLET BY MOUTH THREE TIMES DAILY FOR TREMORS Rx Instructions: TAKE ONE TABLET BY MOUTH THREE TIMES DAILY FOR TREMORS bismuth subsalicylate [Pepto-Bismol] 262 mg/15 mL suspension See Rx Instructions .ROUTE .COMPLEX Qty: 354 1RF Dose Instruction: take 30ml BY MOUTH EVERY 4 HOURS NEEDED FOR upset stomach/diarrhea Rx Instructions: take 30ml BY MOUTH EVERY 4 HOURS NEEDED FOR upset stomach/diarrhea Discharge Orders: Discharge ED (Routine); Ordered 03/20/25 Ordered By: Anival Mejía Referrals: Kaiden Dong DO [Primary Care Provider, Family Practice] - 4-7 days Discharge Diet: Advance as tolerated Discharge Activity: Resume usual activity Patient Instructions: Transverse Process Fracture (ED), Opioid Safety Print Language: Citizen Of [place] Coding Level of Care Code ED Book Retailer for Delma Ron
[2025-03-20] MEDS: HYDROcodone-acetaminophen 5-325 mg Tablet 1 TAB PO (16:52)
[2025-03-20] MEDS: ipratropium-albuterol 3 mL Neb INHALATION (16:52)
[2025-03-20 16:54] VITALS: PULSE 113; RESP 22; O2SAT 93
[2025-03-20 16:55] VITALS: BP 165/90; PULSE 110; O2SAT 93
[2025-03-20 17:01] VITALS: PULSE 113
--- OUTSIDE RECORDS SUMMARY | 2025-03-20 17:56 | XMS_ITS | Patient Health Record ---
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 Name Role Phone Kaiden Dong DO Primary Care Provider Unavail able JESSICA JOSEPH Unavailable [phone] KEYONA العلي Unavailable [phone] Allergies No Known Allergies Results Component Value Reference Range Notes Glucometer WBG Reviewed date:05/26/2024 10:47:07 AM Interpretation: Performing Lab: Notes/Report: Glucometer WBG 85 65-110 MG/DL Meter: [id number]~Social Science Professor: [id number] RASHEED MOREJON Testing performed at: [address] [address] CLIA ID [id number] Urinalysis, Routine Reviewed date:05/22/2024 01:15:51 PM Interpretation: Performing Lab: Notes/Report: Urine-Color yellow Appearance slightly cloudy Glucose - Bilirubin - Ketones - Specific [place] 1.030 Occult Blood - pH 6.0 Urine Protein - Urobilinogen,Semi-Qn - Nitrite, Urine - WBC Esterase trace Urinalysis Gross Exam - Urinalysis, Routine Reviewed date:03/21/2024 10:03:08 AM Interpretation: Performing Lab: Notes/Report: Urine-Color yellow Appearance clear Glucose - Bilirubin - Ketones - Specific [place] 1.015 Occult Blood - pH 7.0 Urine Protein - Urobilinogen,Semi-Qn - Nitrite, Urine - WBC Esterase - Urinalysis Gross Exam - Urinalysis, Routine Reviewed date:03/12/2025 04:16:01 PM Interpretation: Performing Lab: Notes/Report: Urine-Color yellow Appearance clear Glucose - Bilirubin - Ketones - Specific [place] 1.015 Occult Blood - pH 6.0 Urine Protein - Urobilinogen,Semi-Qn - Nitrite, Urine - WBC Esterase 1+ Urinalysis, Routine Reviewed date:05/26/2024 10:47:26 AM Interpretation: Performing Lab: Notes/Report: Urine-Color yellow Appearance clear Glucose - Bilirubin - Ketones - Specific [place] 1.020 Occult Blood - pH 6.0 Urine Protein - Urobilinogen,Semi-Qn - Nitrite, Urine - WBC Esterase - Reason For Referral No Information Medications Medication SIG (Take, Route, Frequency, Duration) Notes Start Date End Date Status traZODone HCl 50 MG 1 tablet at bedtime as needed Orally Once a day Active Tamsulosin HCl 0.4 MG 1 capsule Orally t wice a day for 90 days 03/13/2025 03/08/2026 Active Simvastatin 20 MG 1 tablet in the even ing Orally Once a day Active Vanicream - as directed Externally Active Primidone 125 MG 1 tablet Orally Once a day Active Acetaminophen 325 MG 1 tablet as needed Orally every 4 hrs Active A & D Active diazePAM 5 MG 1 tablet 30-45 minut es prior to cystoscopy Orally Once a day for 1 days 03/28/2024 Active Banophen 25 MG 1 tablet at bedtime as needed Orally Once a day Active Tamsulosin HCl 0.4 MG 1 capsule Orally O nce a day for 90 days Active Finasteride 5 MG 1 tablet Orally Once a day for 90 days Active Polyethylene Glycol - as directed Active Docusate Sodium Acti ve Desitin 13 % as directed Externally Active Triple Antibiotic - 1 application Radiologic Technologist Mammogram ally Once a day Active Ketoconazole 2 % 1 application Radiologic Technologist Mammogram ally Once a day Active Stomach Relief 525 MG/15ML 15 mL Orally Four times a day Active Lisinopril 20 MG 1 tablet Orally Once a day Active Social History Tobacco Use: Social History Observation Description Date Details (start date - stop date) Current Smoker NA - NA Tobacco Control (Standard) Question Answer Notes Tobacco use: Current smoker Problems Problem Type SNOMED Code ICD Code Onset Dates Problem Status W/U Status Risk Notes Problem 72712301 Essential (primary) hypertension (I10) Active confirmed Problem Dribbling of urine (30335077) Post-void dribbling (N39.43) Active confirmed Problem 346311329 Type 2 diabetes mellitus without complication, unspecified whether oysterman insulin use (E11.9) Active confirmed Problem Lower urinary tract symptoms due to benign prostatic hypertrophy (90140028264749) Benign prostatic hyperplasia with lower urinary tract symptoms (N40.1) Active confirmed Problem Redundant prepuce and phimosis (861952458) Acquired phimosis of penis (N47.1) Active confirmed Problem Current smoker (12905861) Current smoker (F17.200) Active confirmed Problem History of cancer (161513832) History of cancer (Z85.9) Active confirmed Problem Urinary incontinence (595407337) Urinary incontinence (R32) Active confirmed Problem Visual impairment (696701083) Visual impairment (H54.7) Active confirmed Problem Anxiety about health (652560300) Anxiety about health (F41.8) Active confirmed Problem Benign prostatic hypertrophy with outflow obstruction (633947242) BPH loc w urin obs/LUTS (N40.1) Active confirmed Vital Signs Heart Rate 95 /min 05/22/2024 Temperature 97.6 degrees Fahrenheit 05/22/2024 Blood pressure diastolic 67 mm Hg 05/22/2024 Height-cm 175.26 cm 03/12/2025 Weight-kg 90.72 kg 03/12/2025 Height 69 in 03/12/2025 Blood pressure systolic 141 mm Hg 05/22/2024 Weight 200 lbs 03/12/2025 BMI 29.53 kg/m2 03/12/2025 Procedures Procedure Date Ordered Date Performed Result Body Sit e Bladder Scan 03/21/2024 03/21/2024 N/A Bladder Scan 05/22/2024 05/22/2024 N/A Bladder Scan 09/11/2024 09/11/2024 N/A Bladder Scan 03/12/2025 03/12/2025 N/A Encounters Encounter Location Date Provider Diagnosis [facility] [address] [place] [address] 04/26/2024 JESSICA JOSEPH [facility], [facility] [address] [place] [address] 03/21/2024 KEYONA العلي BPH loc w urin obs/LUTS N40.1 ; Incomplete bladder emptying R33.9 ; Urinary incontinence R32 ; Urinary frequency R35.0 ; Urgency of urination R39.15 ; Post-void dribbling N39.43 ; History of UTI Z87.440 ; Visual impairment H54.7 ; History of cancer Z85.9 and Current smoker F17.200 [employer] [facility] [employer] [facility] [employer] [facility] [address] [place] [address] 04/17/2024 JESSICA JOSEPH Acquired phimosis of penis N47.1 ; Incomplete bladder emptying R33.9 ; BPH loc w urin obs/LUTS N40.1 ; Urinary incontinence R32 ; Urinary frequency R35.0 ; Urgency of urination R39.15 ; Post-void dribbling N39.43 ; History of UTI Z87.440 ; Visual impairment H54.7 ; History of cancer Z85.9 and Current smoker F17.200 [facility] [address] [place] [address] 05/22/2024 JESSICA JOSEPH Acquired phimosis of penis N47.1 ; BPH loc w urin obs/LUTS N40.1 ; Urinary incontinence R32 ; Urinary frequency R35.0 ; Urgency of urination R39.15 ; Post-void dribbling N39.43 ; History of UTI Z87.440 and Current smoker F17.200 [employer] [address] [place] [address], [place] [address] 09/11/2024 KEYONA SEVERIANO BPH loc w urin obs/LUTS N40.1 ; Acquired phimosis of penis N47.1 ; Urinary incontinence R32 ; Urinary frequency R35.0 ; Urgency of urination R39.15 ; Post-void dribbling N39.43 ; History of UTI Z87.440 and Current smoker F17.200 [facility] [address] [place] [address] 03/12/2025 KEYONA العلي Urgency of urination R39.15 ; BPH loc w urin obs/LUTS N40.1 ; Acquired phimosis of penis N47.1 ; Urinary incontinence R32 ; Urinary frequency R35.0 ; Post-void dribbling N39.43 ; History of UTI Z87.440 and Current smoker F17.200 [facility] [address] [place] [address] 03/21/2024 KEYONA العلي Anxiety about health F41.8 [employer] [place] [address] [place] [address] 04/21/2024 JESSICA JOSEPH Preop testing Z01.81 8 ; Essential (primary) hypertension I10 and Type 2 diabetes mellitus without complication, unspecified whether fdc insulin use E11.9 DO NOT USE THIS FACILITY [employer], [place] [address] [facility] [address] [place] [address], [place] [id number] 04/24/2024 [facility] [address] [place] [address] 04/24/2024 JESSICA JOSEPH [facility], [facility] [address] [place] [address] 05/23/2024 JESSICA JOSEPH [employer], [facility] [address] [place] [address] 03/13/2025 KEYONA العلي Assessments Encounter Date Diagnosis (ICD Code) Assessment Notes Treatment Notes Treatment Clinical Notes Section Notes 03/21/2024 Incomplete bladder emptying (ICD-10 - R33.9) 03/21/2024 BPH loc w urin obs/LUTS (ICD-10 - N40.1) 03/12/2025 Urgency of urination (ICD-10 - R39.15) 09/11/2024 BPH loc w urin obs/LUTS (ICD-10 - N40.1) 05/22/2024 Acquired phimosis of penis (ICD-10 - N47.1) 73 y/o M w/ BPH / LUTS on maximal medical management, rUTIs, severe phimosis s/p Cysto with dorsal slit on 04/26/24. Pt healed well postoperativel y, but dorsal slit opening closing down again, meatus visible at inferior edge. Will monitor as he feels voiding has improved. UA is clear. PVR zero. Continue tamsulosin and fiansteride. He will return in 4 months with Freddy العلي APRN with UA/PVR or sooner with any concerns Plan: -RTC in 4 months with Keyona العلي APRN -RTC or call sooner with any concerns Purvi Rosario, Scrmoize, am scribing for, and in the presence of, Dr. Joseph. I, Dr. Jessica Joseph, personally performed the services prescribed in this documentation, as scribed by Purvi Gupta, in my presence, and it is both accurate and complete. 05/22/2024 BPH loc w urin obs/LUTS (ICD-10 - N40.1) 73 y/o M w/ BPH / LUTS on maximal medical management, rUTIs, severe phimosis s/p Cysto with dorsal slit on 04/26/24. Pt healed well postoperativel y, but dorsal slit opening closing down again, meatus visible at inferior edge. Will monitor as he feels voiding has improved. UA is clear. PVR zero. Continue tamsulosin and fiansteride. He will return in 4 months with Freddy العلي APRN with UA/PVR or sooner with any concerns Plan: -RTC in 4 months with Keyona العلي APRN -RTC or call sooner with any concerns IPurvi, Scribe, am scribing for, and in the presence of, Dr. Joseph. I, Dr. Jessica Joseph, personally performed the services prescribed in this documentation, as scribed by Purvi Gupta, in my presence, and it is both accurate and complete. 04/21/2024 Preop testing (ICD-10 - Z01.818) 04/17/2024 Acquired phimosis of penis (ICD-10 - N47.1) 73 y/o M w/ BPH / LUTS on maximal medical management, rUTIs, severe phimosis. Unable to perform cysto due to phimosis. Discussed findings with patient and his caregivers. I recommend performing dorsal slit and cysto in the OR. The R/B/A of surgery were discussed. They agree to proceed. Plan: schedule dorsal slit and cysto in OR next available -all questions answered 04/17/2024 Incomplete bladder emptying (ICD-10 - R33.9) 73 y/o M w/ BPH / LUTS on maximal medical management, rUTIs, severe phimosis. Unable to perform cysto due to phimosis. Discussed findings with patient and his caregivers. I recommend performing dorsal slit and cysto in the OR. The R/B/A of surgery were discussed. They agree to proceed. Plan: schedule dorsal slit and cysto in OR next available -all questions answered 03/21/2024 Anxiety about health (ICD-10 - F41.8) 04/17/2024 BPH loc w urin obs/LUTS (ICD-10 - N40.1) 73 y/o M w/ BPH / LUTS on maximal medical management, rUTIs, severe phimosis. Unable to perform cysto due to phimosis. Discussed findings with patient and his caregivers. I recommend performing dorsal slit and cysto in the OR. The R/B/A of surgery were discussed. They agree to proceed. Plan: schedule dorsal slit and cysto in OR next available -all questions answered 04/21/2024 Essential (primary) hypertension (ICD-10 - I10) 05/22/2024 Urinary incontinence (ICD-10 - R32) 73 y/o M w/ BPH / LUTS on maximal medical management, rUTIs, severe phimosis s/p Cysto with dorsal slit on 04/26/24. Pt healed well postoperativel y, but dorsal slit opening closing down again, meatus visible at inferior edge. Will monitor as he feels voiding has improved. UA is clear. PVR zero. Continue tamsulosin and fiansteride. He will return in 4 months with Freddy العلي APRN with UA/PVR or sooner with any concerns Plan: -RTC in 4 months with Keyona العلي APRN -RTC or call sooner with any concerns IPurvi, Scribe, am scribing for, and in the presence of, Dr. Joseph. I, Dr. Jessica Joseph, personally performed the services prescribed in this documentation, as scribed by Purvi Gupta, in my presence, and it is both accurate and complete. 09/11/2024 Acquired phimosis of penis (ICD-10 - N47.1) 03/12/2025 BPH loc w urin obs/LUTS (ICD-10 - N40.1) 03/21/2024 Urinary incontinence (ICD-10 - R32) 03/12/2025 Acquired phimosis of penis (ICD-10 - N47.1) 03/21/2024 Urinary frequency (ICD-10 - R35.0) 09/11/2024 Urinary incontinence (ICD-10 - R32) 05/22/2024 Urinary frequency (ICD-10 - R35.0) 73 y/o M w/ BPH / LUTS on maximal medical management, rUTIs, severe phimosis s/p Cysto with dorsal slit on 04/26/24. Pt healed well postoperativel y, but dorsal slit opening closing down again, meatus visible at inferior edge. Will monitor as he feels voiding has improved. UA is clear. PVR zero. Continue tamsulosin and fiansteride. He will return in 4 months with Freddy العلي APRN with UA/PVR or sooner with any concerns Plan: -RTC in 4 months with Keyona العلي APRN -RTC or call sooner with any concerns IPurvi, Scribánegla, am scribing for, and in the presence of, Dr. Joseph. I, Dr. Jessica Joseph, personally performed the services prescribed in this documentation, as scribed by Purvi Gupta, in my presence, and it is both accurate and complete. 04/21/2024 Type 2 diabetes mellitus without complication, unspecified whether fdc insulin use (ICD-10 - E11.9) 04/17/2024 Urinary incontinence (ICD-10 - R32) 73 y/o M w/ BPH / LUTS on maximal medical management, rUTIs, severe phimosis. Unable to perform cysto due to phimosis. Discussed findings with patient and his caregivers. I recommend performing dorsal slit and cysto in the OR. The R/B/A of surgery were discussed. They agree to proceed. Plan: schedule dorsal slit and cysto in OR next available -all questions answered 04/17/2024 Urinary frequency (ICD-10 - R35.0) 73 y/o M w/ BPH / LUTS on maximal medical management, rUTIs, severe phimosis. Unable to perform cysto due to phimosis. Discussed findings with patient and his caregivers. I recommend performing dorsal slit and cysto in the OR. The R/B/A of surgery were discussed. They agree to proceed. Plan: schedule dorsal slit and cysto in OR next available -all questions answered 05/22/2024 Urgency of urination (ICD-10 - R39.15) 73 y/o M w/ BPH / LUTS on maximal medical management, rUTIs, severe phimosis s/p Cysto with dorsal slit on 04/26/24. Pt healed well postoperativel y, but dorsal slit opening closing down again, meatus visible at inferior edge. Will monitor as he feels voiding has improved. UA is clear. PVR zero. Continue tamsulosin and fiansteride. He will return in 4 months with Freddy العلي APRN with UA/PVR or sooner with any concerns Plan: -RTC in 4 months with Keyona العلي APRN -RTC or call sooner with any concerns IPurvi Scribe, am scribing for, and in the presence of, Dr. Joseph. I, Dr. Jessica Joseph, personally performed the services prescribed in this documentation, as scribed by Purvi Gupta, in my presence, and it is both accurate and complete. 09/11/2024 Urinary frequency (ICD-10 - R35.0) 03/12/2025 Urinary incontinence (ICD-10 - R32) 03/21/2024 Urgency of urination (ICD-10 - R39.15) 03/21/2024 Post-void dribbling (ICD-10 - N39.43) 03/12/2025 Urinary frequency (ICD-10 - R35.0) 05/22/2024 Post-void dribbling (ICD-10 - N39.43) 73 y/o M w/ BPH / LUTS on maximal medical management, rUTIs, severe phimosis s/p Cysto with dorsal slit on 04/26/24. Pt healed well postoperativel y, but dorsal slit opening closing down again, meatus visible at inferior edge. Will monitor as he feels voiding has improved. UA is clear. PVR zero. Continue tamsulosin and fiansteride. He will return in 4 months with Freddy العلي APRN with UA/PVR or sooner with any concerns Plan: -RTC in 4 months with Keyona العلي APRN -RTC or call sooner with any concerns Purvi Rosario Scribe, am scribing for, and in the presence of, Dr. Joseph. I, Dr. Jessica Joseph, personally performed the services prescribed in this documentation, as scribed by Purvi Gupta, in my presence, and it is both accurate and complete. 09/11/2024 Urgency of urination (ICD-10 - R39.15) 04/17/2024 Urgency of urination (ICD-10 - R39.15) 73 y/o M w/ BPH / LUTS on maximal medical management, rUTIs, severe phimosis. Unable to perform cysto due to phimosis. Discussed findings with patient and his caregivers. I recommend performing dorsal slit and cysto in the OR. The R/B/A of surgery were discussed. They agree to proceed. Plan: schedule dorsal slit and cysto in OR next available -all questions answered 04/17/2024 Post-void dribbling (ICD-10 - N39.43) 73 y/o M w/ BPH / LUTS on maximal medical management, rUTIs, severe phimosis. Unable to perform cysto due to phimosis. Discussed findings with patient and his caregivers. I recommend performing dorsal slit and cysto in the OR. The R/B/A of surgery were discussed. They agree to proceed. Plan: schedule dorsal slit and cysto in OR next available -all questions answered 05/22/2024 History of UTI (ICD-10 - Z87.440) 73 y/o M w/ BPH / LUTS on maximal medical management, rUTIs, severe phimosis s/p Cysto with dorsal slit on 04/26/24. Pt healed well postoperativel y, but dorsal slit opening closing down again, meatus visible at inferior edge. Will monitor as he feels voiding has improved. UA is clear. PVR zero. Continue tamsulosin and fiansteride. He will return in 4 months with Freddy العلي APRN with UA/PVR or sooner with any concerns Plan: -RTC in 4 months with Keyona العلي APRN -RTC or call sooner with any concerns IPurvi, Antelmo, am scribing for, and in the presence of, Dr. Joseph. I, Dr. Jessica Joseph, personally performed the services prescribed in this documentation, as scribed by Purvi Gupta, in my presence, and it is both accurate and complete. 09/11/2024 Post-void dribbling (ICD-10 - N39.43) 03/12/2025 Post-void dribbling (ICD-10 - N39.43) 03/21/2024 History of UTI (ICD-10 - Z87.440) 03/21/2024 Visual impairment (ICD-10 - H54.7) 03/12/2025 History of UTI (ICD-10 - Z87.440) 05/22/2024 Current smoker (ICD-10 - F17.200) 73 y/o M w/ BPH / LUTS on maximal medical management, rUTIs, severe phimosis s/p Cysto with dorsal slit on 04/26/24. Pt healed well postoperativel y, but dorsal slit opening closing down again, meatus visible at inferior edge. Will monitor as he feels voiding has improved. UA is clear. PVR zero. Continue tamsulosin and fiansteride. He will return in 4 months with Freddy العلي APRN with UA/PVR or sooner with any concerns Plan: -RTC in 4 months with Keyona العلي APRN -RTC or call sooner with any concerns IPurvi Scribe, am scribing for, and in the presence of, Dr. Joseph. I, Dr. Jessica Joseph, personally performed the services prescribed in this documentation, as scribed by Purvi Gupta, in my presence, and it is both accurate and complete. 09/11/2024 History of UTI (ICD-10 - Z87.440) 04/17/2024 History of UTI (ICD-10 - Z87.440) 73 y/o M w/ BPH / LUTS on maximal medical management, rUTIs, severe phimosis. Unable to perform cysto due to phimosis. Discussed findings with patient and his caregivers. I recommend performing dorsal slit and cysto in the OR. The R/B/A of surgery were discussed. They agree to proceed. Plan: schedule dorsal slit and cysto in OR next available -all questions answered 04/17/2024 Visual impairment (ICD-10 - H54.7) 73 y/o M w/ BPH / LUTS on maximal medical management, rUTIs, severe phimosis. Unable to perform cysto due to phimosis. Discussed findings with patient and his caregivers. I recommend performing dorsal slit and cysto in the OR. The R/B/A of surgery were discussed. They agree to proceed. Plan: schedule dorsal slit and cysto in OR next available -all questions answered 09/11/2024 Current smoker (ICD-10 - F17.200) 03/12/2025 Current smoker (ICD-10 - F17.200) 03/21/2024 History of cancer (ICD-10 - Z85.9) 03/21/2024 Current smoker (ICD-10 - F17.200) 04/17/2024 History of cancer (ICD-10 - Z85.9) 73 y/o M w/ BPH / LUTS on maximal medical management, rUTIs, severe phimosis. Unable to perform cysto due to phimosis. Discussed findings with patient and his caregivers. I recommend performing dorsal slit and cysto in the OR. The R/B/A of surgery were discussed. They agree to proceed. Plan: schedule dorsal slit and cysto in OR next available -all questions answered 04/17/2024 Current smoker (ICD-10 - F17.200) 73 y/o M w/ BPH / LUTS on maximal medical management, rUTIs, severe phimosis. Unable to perform cysto due to phimosis. Discussed findings with patient and his caregivers. I recommend performing dorsal slit and cysto in the OR. The R/B/A of surgery were discussed. They agree to proceed. Plan: schedule dorsal slit and cysto in OR next available -all questions answered 03/21/2024 Other UA is clear, PVR of 312 mL. Recommended education on CIC versus placing an indwelling [place] due to urinary retention. Nursing staff states they have had instruction from guardian previously not to do catheters. I stepped out of the room and tried to call guardian, patient's niece Yee Agosto, and had to leave a voicemail asking her to call me back. For now, recommended that he continue with double voiding. He is on max dose of tamsulosin and finasteride without improvement of his LUTS. Recommended we schedule him for cystoscopy for further evaluation. Again this left to be discussed with his guardian, but we will go and put him on the schedule. I will continue to try to call her to discuss patient's plan of care. In the future, it would be beneficial if she could accompany him to visits. All questions that were asked were answered. Patient is satisfied plan of care. 09/11/2024 Other Patient unable to void for UA today. He denies any urological problems. RTC in 6 months with UA/PVR, or PRN sooner with any issues. 03/12/2025 Other UA clear, PVR minimal. Continue max med management of BPH. Refills sent. RTC in 6 months with UA/PVR. Plan Of Treatment Pending Test Test Name Order Date Urinalysis, Routine 09/11/2024 Basic Metabolic Panel 04/21/2024 CBC w/ Auto Diff 04/21/2024 Electrocardiogram, 12 Lead Tracing-[id number] 04/21/2024 Next Appt Details Provider Name:KEYONA العلي, 0 03/18/2026 10:40:00 AM, [address] [place], [address], Insurance Providers Payer Name Payer Address Payer Phone Subscriber Number Group Number Insured Name Patient Relationship to Insured Coverage Start Date Coverage End Date [place] [address] [place]AK [place]EREN [place]ERT [id number] Seng Dean Self - patient is the insured [place] [address] [place], [place] [id number] Seng Dean Self - patient is the insured Medical (General) History Medical History History ICD Code Diabetes hypertension dysuria BPH w/ lUTS Elevated PSA nocturia 3x/ night urinary frequency urinary urgency intermittent urination post void dribbling Surgical History Surgery Date(Month/Year) left eyelid surgery
[2025-03-20 18:23] VITALS: BP 132/92; PULSE 99; O2SAT 92
== END 2025-03-20 18:26 | disposition home or self-care (01) ==
PROVIDERS: Emergency Provider Emergency Medicine; PCP Family Medicine
DX: S32.039A Unspecified fracture of third lumbar vertebra, initial encounter for closed fracture (principal); Z72.0 Tobacco use; W19.XXXA Unspecified fall, initial encounter
CPT/HCPCS: 72128; 72131; 94640; 99284; J9999

== ENCOUNTER 2025-08-15 07:28 | Outpatient (CLI) | payer MEDICARE, MEDICAID, SELFPAY ==
--- NOTE | 2025-08-15 16:00 | CT_ITS ---
WS: [id number] LDCT LUNG CANCER SCREENING TECHNIQUE: Noncontrast CT of the chest with coronal and sagittal reformatted images. CLINICAL INFORMATION: F17.219 - Nicotine dependence, cigarettes, with unspecifi... COMPARISON: 2023 DLP: 99.00 mGy.cm DIvol: Mean CTDIvol: 2.50 (mGy) All CT scans at [facility] use at least one of these dose optimization techniques: automated exposure control; mA and/or kV adjustment per patient size (includes targeted exams where dose is matched to clinical indication); or iterative reconstruction. FINDINGS: Some images degraded by respiratory artifact Mild chronic emphysematous changes with bulla formation RIGHT lower lobe posterior medially unchanged. Bibasilar atelectasis. No new suspicious pulmonary parenchymal abnormalities considering respiratory artifact. Cholelithiasis. Aortic calcification. Slightly aneurysmal aortic arch. Coronary calcification. No mediastinal or hilar lymphadenopathy. Small esophageal hiatal hernia. Again seen are large cysts LEFT kidney partially visualized. Adrenal glands are normal. Spondylitic changes thoracic spine with ankylosis. Mild thoracic curve and kyphosis.. CT/CT lung screening [id number] IMPRESSION: LUNG-RADS: 2-Benign Appearance or Behavior FOLLOW UP: 12 Month: Continue annual screening with LDCT
== END 2025-08-15 07:29 | disposition home or self-care (01) ==
LOC: RAD 07:29
PROVIDERS: PCP Family Medicine; Visit Provider Family Medicine
DX: Z12.2 Encounter for screening for malignant neoplasm of respiratory organs (principal); F17.219 Nicotine dependence, cigarettes, with unspecified nicotine-induced disorders; J43.9 Emphysema, unspecified; J98.11 Atelectasis; K80.20 Calculus of gallbladder without cholecystitis without obstruction; I25.10 Atherosclerotic heart disease of native coronary artery without angina pectoris; K44.9 Diaphragmatic hernia without obstruction or gangrene; Q61.02 Congenital multiple renal cysts; M47.814 Spondylosis without myelopathy or radiculopathy, thoracic region; M43.24 Fusion of spine, thoracic region; M40.204 Unspecified kyphosis, thoracic region; M43.9 Deforming dorsopathy, unspecified
CPT/HCPCS: 71271